=== PATIENT | female | born 1945 | race Hispanic/Latino ===

== ENCOUNTER → 2018-09-30 | Day surgery (SDC) | payer MEDICARE ==
[2018-09-15 12:31] LABS: BASOPHILS # (AUTO) 0.1 (0.0-0.1); BASOPHILS % 1.3 % (0.0-1.0); EOSINOPHILS # (AUTO) 0.1 (0.0-0.4); EOSINOPHILS % 1.6 % (0.0-6.0); HEMATOCRIT 35.6 % (34.2-44.1); HEMOGLOBIN 12.1 g/dL (12.0-16.0); LYMPHOCYTES # (AUTO) 1.5 (1.0-3.2); LYMPHOCYTES % 39.8 % (18.0-39.1); MEAN CORPUSCULAR HEMOGLOBIN 31.5 pg (28-32); MEAN CORPUSCULAR VOLUME 92.7 fL (81-99); MONOCYTES # (AUTO) 0.3 (0.2-0.8); MONOCYTES % 7.3 % (4.4-11.3); NEUTROPHILS # (AUTO) 1.8 (2.1-6.9); NEUTROPHILS % 49.5 % (38.7-80.0); PLATELET COUNT 203 x10e3/uL (140-360); RED BLOOD COUNT 3.84 x10e6/uL (3.6-5.1); RED CELL DISTRIBUTION WIDTH 13.3 % (11.7-14.4)
[2018-09-15 12:45] LABS: ANION GAP 13.4 mmol/L (8-16); CALCIUM 9.2 mg/dL (8.4-10.2); CREATININE, SERUM 1.01 mg/dL (0.57-1.11); POTASSIUM 4.4 mmol/L (3.5-5.1)
--- NOTE | 2018-09-15 12:51 | Diagnostic Imaging Report ---
EXAM: CHEST 2 VIEWS, PA and lateral DATE: 09/15/2018 Time stamp on exam: 12:22 PM INDICATION: Preoperative COMPARISON: None FINDINGS: LINES/TUBES: None LUNGS: No consolidations or edema. PLEURA: No effusions or pneumothorax. HEART AND MEDIASTINUM: Normal size and contour. Tortuous thoracic aorta. BONES AND SOFT TISSUES: No acute findings. Degenerative changes of the spine. IMPRESSION: No acute thoracic abnormality. Signed by: Dr. Prakash Calix DO on 09/15/2018 12:48 PM
[~2018-09-30] MED LIST: ASPIR 8181 MG PO; BETAMETHASONE DISODIUM PHOS 6 MG/ML VIAL ONE; BUPIVACAINE HCL 0.5% INJ 30 ML VIAL INJ ONE; CLINDAMYCIN PHOS 900MG/ 50ML 50 ML IV ONE; DEXAMETHASONE SOD PHOS INJ 4 MG/ML VIAL ONE; ELIQUIS PO; FENTANYL CITRATE/PF 100MCG/2 ML INJ ONE; FISH OIL OMEGA1 EACH PO; HYDROMORPHONE 2MG/ML 2 MG/ML ML ONE; KETOROLAC TROMETHAMINE 30 MG/ML VIAL ONE; LIDOCAINE HCL 1% LOCAL INJ 20 ML VIAL ONE; LIDOCAINE HCL 2% LOCAL INJ 5 ML SDV VIAL INJ ONE; LUBIPROSTONE PO; MIDAZOLAM HCL 2 MG/2 ML VIAL ONE; MUPIROCIN 2% OINT 22 GM TUBE ONE; OMEPRAZOLE40 MG PO; ONDANSETRON HCL INJ 2MG/ML 2ML 2 MG/ML VIAL ONE; PROPOFOL IV EMULSION 10 MG/ML 20 ML VIAL ONE; SEVOFLURANE INHAL SOLN 250 ML PEN BTL ONE; SYMBICORT 160-4.6 GM IH; VITAMIN B-121000 MCG PO; Z.0.ALBUTEROL SULF8. IH; Z.0.ENALAPRIL MALEA2 PO; Z.0.HYDROCHLOROTHIA2 PO; Z.0.PREVACID30 MG PO; Z.0.REGLAN10 MG PO; Z.0.SINGULAIR10 MG PO; Z.0.TRICOR145 MG PO; ZOLPIDEM TARTRAT5 MG PO
--- OUTSIDE RECORDS SUMMARY | 2018-09-30 05:53 | XMS REPORT | Summary of Care ---
Author Author [facility] [place] Organization [facility] [place] Address Unknown Phone Unavailable Encounter HQ Bhartir_ken(THIEN) [id number] Date(s): 04/17/17 - 04/17/17 [facility] [place] [address] [place] [phone] Discharge Disposition: Home or Self Care Attending Physician: Francesca Terry MD Vital Signs No data available for this section Problem List No data available for this section Allergies, Adverse Reactions, Alerts No data available for this section Medications No data available for this section Results No data available for this section Immunizations No data available for this section Procedures No data available for this section Social History No data available for this section Assessment and Plan No data available for this section
--- OUTSIDE RECORDS SUMMARY | 2018-09-30 05:53 | XMS REPORT | Continuity of Care Document ---
Author Author [facility] Interface Address Unknown Phone Unavailable Problems Problem Status Onset Date Classification Date Reported Comments Source Z12.31 - ENCNTR SCREEN MAMMOGRAM FOR MA Active 03/12/2016 MH LEEANNED [place] DWYER Active Problem 03/01/2017 Stephanie Nielsen Palpitations Active Problem 03/01/2017 Stephanie Nielsen Essential hypertension with goal blood pressure less than 140\/90 Active Problem 03/01/2017 Stephanie Nielsen History of DVT Active Problem 03/01/2017 Stephanie Nielsen Venous insufficiency Active Problem 03/01/2017 Stephanie Nielsen Asthma Active Problem 03/01/2017 Stephanie Nielsen History of pulmonary embolism Active Problem 03/01/2017 Stephanie Nielsen Nonrheumatic mitral insufficiency Active Problem 03/01/2017 Stephanie Nielsen Nonrheumatic tricuspid valve disorder Active Problem 03/01/2017 Stephanie Nielsen Aortic valve sclerosis Active Problem 03/01/2017 Stephanie Nielsen Medications Medication Details Route Status Patient Instructions Ordering Provider Order Date Source Enalapril Maleate not defined Orally Active 20 MG Orally Gia Nielsen Advair Diskus 1 puff Inhalation Active 250-50 MCG/DOSE Inhalation Twice a day Gia Nielsen Omeprazole 1 capsule Orally Active 40 MG Orally Once a day Gia Nielsen Gabapentin not defined Orally Active 100 MG Orally Gia Nielsen Aspirin 1 tablet Orally Active 81 MG Orally Once a day Gia Nielsen Zolpidem Tartrate 1 tablet at bedtime as needed Orally Active 10 MG Orally Once a day Gia Nielsen ProAir HFA 2 puffs as needed Inhalation Active 108 (90 Base) MCG/ACT Inhalation every 4 hrs Gia Nielsen Metoclopramide HCl not defined Orally Active 10 mg Orally twice a day (bid) Gia Nielsen Tramadol & Dietary Manage Prod not defined Orally Active 50 MG Orally Gia Nielsen Mirapex 1 tablet before bedtime Orally Active 0.25 MG Orally Once a day Gia Nielsen Fenofibrate 1 tablet Orally Active 145 MG Orally Once a day Gia Nielsen Montelukast Sodium 1 tablet in the evening Orally Active 10 MG Orally Once a day Gia Nielsen Allergies, Adverse Reactions, Alerts Substance Category Reaction Severity Reaction type Status Date Reported Comments Source Penicillin Adverse Reaction rashes Adverse Reaction Active 11/08/2015 Stephanie Nielsen Immunizations Immunization Date Given Site Status Last Updated Comments Source Results Order Name Results Value Reference Range Date Interpretation Comments Source Breast Mammo Scrn HUMZA incl CAD MA Breast Mammo Scrn HUMZA incl CAD MA BILATERAL DIGITAL SCREENING MAMMOGRAM WITH CAD: 04/18/2018 CLINICAL: Routine/Screeing. Current study was evaluated with a Computer Aided Detection (CAD) system. COMPARISON:Comparison is made to exams dated: 04/17/2017 mammogram, 04/17/2016 mammogram, 03/08/2015 mammogram, 03/06/2014 mammogram, 02/14/2013 mammogram, and 11/28/2011 mammogram - [facility]. TECHNIQUE: Mammographic views were obtained using digital acquisition. Current study was also evaluated with a Computer Aided Detection (CAD) system. FINDINGS: There are scattered fibroglandular densities in both breasts. There are benign vascular calcifications and intramammary nodes in both breasts. There also are benign scattered calcifications in both breasts. No significant masses, calcifications, or other findings are seen in either breast. There has been no significant interval change. IMPRESSION: BENIGN RECOMMENDATION:There is no mammographic evidence of malignancy. A 1 year screening mammogram is recommended.(04/19/2019) This exam was interpreted at [id number] for [place], SL 15. Professional services are provided by the [facility]. Mitul Coleman M.D., cm/remigio:04/18/2018 13:39:14 Form Presser(s): Dinorah Gotti RT(R)(M), [facility] letter sent: BI-RADS 1/2 Mammogram BI-RADS: 2 Benign 04/18/2018 - - Read by: Felton Michelle MD Dictated Date/time: 04/18/18 13:39 Electronically Signed by: Felton Michelle MD 04/18/18 13:39 FINAL REPORT JERRICA Krishna Breast Mammo Scrn HUMZA incl CAD MA Breast Mammo Scrn HUMZA incl CAD MA BILATERAL DIGITAL SCREENING MAMMOGRAM WITH CAD: 04/17/2017 CLINICAL: Routine/Screening. Current study was evaluated with a Computer Aided Detection (CAD) system. Comparison is made to exams dated: 04/17/2016 mammogram, 03/08/2015 mammogram, 03/06/2014 mammogram, and 02/14/2013 mammogram - [facility]. There are scattered fibroglandular densities in both breasts. There are benign vascular calcifications and intramammary nodes in both breasts. There also are benign scattered calcifications in both breasts. No significant masses, calcifications, or other findings are seen in either breast. There has been no significant interval change. IMPRESSION: BENIGN There is no mammographic evidence of malignancy. A 1 year screening mammogram is recommended.(04/18/2018) This exam was interpreted at [id number] [place]. Professional services are provided by the [facility]. Mitul Coleman M.D. cm/penrad:04/17/2017 08:49:36 Form Presser(s): RT Fly(R)(M), [facility] This exam was dictated and interpreted by [id number] for JERRICA Krishna. letter sent: BI-RADS 1/2 Mammogram BI-RADS: 2 Benign 04/17/2017 - - Read by: Felton Michelle MD Dictated Date/time: 04/17/17 08:49 Electronically Signed by: Felton Michelle MD 04/17/17 08:49 FINAL REPORT JERRICA Krishna Digital Mammo Screening [facility] MA Digital Mammo Screening [facility] MA - DIGITAL MAMMO SCREENING HUMZA MA BILATERAL DIGITAL SCREENING MAMMOGRAM WITH CAD: 04/17/2016 CLINICAL: Routine. Current study was evaluated with a Computer Aided Detection (CAD) system. Comparison is made to exams dated: 03/08/2015 mammogram, 03/06/2014 mammogram, 02/14/2013 mammogram, 11/28/2011 mammogram, 10/03/2010 mammogram and 03/18/2009 mammogram - [facility]. There are scattered fibroglandular densities in both breasts. There are benign vascular calcifications in both breasts. There also are benign intramammary nodes in both breasts. Additionally there are benign scattered calcifications in both breasts. No significant masses, calcifications, or other findings are seen in either breast. There has been no significant interval change. IMPRESSION: BENIGN There is no mammographic evidence of malignancy. A 1 year screening mammogram is recommended. Professional services are provided by the [facility]. Mitul Coleman M.D. cm/penrad:04/18/2016 08:56:09 Form Presser: Dinorah MACIEL)(Toby), [facility] This exam was dictated and interpreted by [id number] for [place]. letter sent: Normal exam Mammogram BI-RADS: 2 Benign 04/17/2016 - - Read by: Felton Coleman III, MD Dictated Date/time: 04/18/16 08:56 Electronically Signed by: Felton Coleman III, MD 04/18/16 08:56 FINAL REPORT LEEANNESumaya [place] Digital Mammo Screening [facility] MA Digital Mammo Screening [facility] MA - DIGITAL MAMMO SCREENING HUMZA MA BILATERAL DIGITAL SCREENING MAMMOGRAM WITH CAD: 03/08/2015 CLINICAL: Routine. Current study was evaluated with a Computer Aided Detection (CAD) system. Comparison is made to exams dated: 11/28/2011 mammogram, 02/14/2013 mammogram and 03/06/2014 mammogram - [facility]. There are scattered fibroglandular densities in both breasts. There are benign vascular calcifications and calcifications in both breasts. There also is a benign intramammary node in the right breast. Additionally there are benign intramammary nodes in the left breast. No significant masses, calcifications, or other findings are seen in either breast. There has been no significant interval change. IMPRESSION: BENIGN There is no mammographic evidence of malignancy. A 1 year screening mammogram is recommended. Gregorio Mueller M.D. srp/penrad:03/08/2015 13:07:28 Form Presser: Anusha GODDARD (R)(Toby), [facility] This exam was dictated and interpreted by [id number] for Deedee Alonso. letter sent: Normal exam Mammogram BI-RADS: 2 Benign 03/08/2015 - - Read by: Gregorio Mueller MD Dictated Date/time: 03/08/15 13:07 Electronically Signed by: Gregorio Mueller MD 03/08/15 13:07 FINAL REPORT LEEANNESumaya [place] Digital Mammo Screening [facility] MA Digital Mammo Screening [facility] MA - DIGITAL MAMMO SCREENING HUMZA MA BILATERAL DIGITAL SCREENING MAMMOGRAM WITH CAD: 03/06/2014 CLINICAL: Screening. Current study was evaluated with a Computer Aided Detection (CAD) system. Comparison is made to exams dated: 06/09/2008 mammogram, 03/18/2009 mammogram, 10/03/2010 mammogram, 11/28/2011 mammogram and 02/14/2013 mammogram - [facility]. There are scattered fibroglandular densities in both breasts. No significant masses, calcifications, or other findings are seen in either breast. There has been no significant interval change. IMPRESSION: NEGATIVE There is no mammographic evidence of malignancy. A screening mammogram in one year is recommended. Dr. Nereida Roberts D.O. ht/penrad:03/08/2014 08:42:28 Form Presser: Nusrat MACIEL)(Toby), [facility] This exam was dictated and interpreted by [id number] for JERRICA Krishna. letter sent: Normal exam Mammogram BI-RADS: 1 Negative 03/06/2014 - - Read by: Nereida Roberts DO Dictated Date/time: 03/08/14 08:42 Electronically Signed by: Nereida Roberts DO 03/08/14 08:42 FINAL REPORT GLADIS Krishna Chest w contrast CT Chest w contrast CT Exam: CT Scan of the Chest with contrast Reason for exam: Cough. Shortness of breath. Comparison exam: none Technique: Multiple axial images were obtained of the chest. 1.25 and 5 mm slices were acquired after injection of 75 cc Visipaque IV as per PE protocol. In addition, reformatted sagittal and coronal images were obtained for additional diagnostic information. Total exam ZES=946 mGy-cm. Discussion: 1.2 cm heterogeneous hypodense nodule seen within the right lobe of the thyroid gland. No mediastinal, hilar, or axillary lymphadenopathy. The heart size is within normal limits. No pericardial or pleural effusions. The central airways are patent. No interstitial thickening or bronchiectasis. No focal lung consolidations. There are no filling defects seen within the pulmonary arterial system out through the segmental level to suggest the presence of pulmonary emboli. No evidence seen for thoracic aortic aneurysm or dissection. The adrenal glands are within normal limits. No acute bony abnormalities. No suspicious osteoblastic or osteolytic lesions. Impression: 1. There are no filling defects seen within the pulmonary arterial system out through the segmental level to suggest the presence of pulmonary emboli. 05/18/2013 - - Read by: Kenroy Rajan Dictated Date/time: 05/18/13 15:34 Electronically Signed by: Kenroy Rajan MD 05/18/13 15:57 FINAL REPORT [facility] Digital Mammo Screening [facility] MA Digital Mammo Screening [facility] MA - DIGITAL MAMMO SCREENING HUMZA MA BILATERAL DIGITAL SCREENING MAMMOGRAM WITH CAD: 02/14/2013 CLINICAL: Screening. Current study was evaluated with a Computer Aided Detection (CAD) system. Comparison is made to exams dated: 03/18/2009 mammogram, 10/03/2010 mammogram and 11/28/2011 mammogram - [facility]. There are scattered fibroglandular elements in both breasts that could obscure a lesion on mammography. There are benign vascular calcifications in both breasts. There also are benign lymph nodes in both breasts. Additionally there are benign scattered calcifications in both breasts. No significant masses, calcifications, or other findings are seen in either breast. There has been no significant interval change. IMPRESSION: BENIGN There is no mammographic evidence of malignancy. A screening mammogram in one year is recommended. Dr. Nereida miguel/penrad:02/17/2013 08:55:05 Form Presser: Jennifer Gray RT, [facility] letter sent: Normal exam Mammogram BI-RADS: 2 Benign 02/14/2013 - - Read by: Nereida Roberts Dictated Date/time: 02/17/13 08:55 Electronically Signed by: Nereida Roberts , 02/17/13 08:55 FINAL REPORT GLADIS Krishna Renal US Renal US RENAL ULTRASOUND COMPLETE HISTORY: 67-year-old female with hypertension and chronic renal insufficiency. TECHNIQUE: Longitudinal and transverse lucas-scale images of the kidneys, retroperitoneal space and bladder were obtained using real-time ultrasound and supplemented with color Doppler. COMPARISON: None. FINDINGS: The kidneys have normal morphology and mild lobulated contour. Right kidney dimensions are 10.6 x 3.9 x 5.3 cm with cortical thickness of 1.2 cm. The arterial resistive index is 0.70. Left kidney dimensions are 10 x 4.8 x 4.8 cm with cortical thickness of 1.3 cm. The arterial resistive index is 0.69. The urinary bladder is moderately distended with hypoechoic lumen, both ureteric flow jets seen. The abdominal aorta has normal caliber and scattered plaque. The IVC has phasic flow. IMPRESSION: Normal renal ultrasound exam. 11/19/2012 - - Read by: Tato Olivarez Dictated Date/time: 11/19/12 15:36 Electronically Signed by: Tato Olivarez MD 11/19/12 15:38 FINAL REPORT GLADIS Krishna Vital Signs Vital Sign Value Date Comments Source Weight 140 11/08/2015 Mohamed O Jeroudi Height 63 11/08/2015 Mohamed O Jeroudi Temperature Oral (F) 96.5 F 11/08/2015 Mohamed O Jeroudi Heart Rate 90 11/08/2015 Mohamed O Jeroudi Diastolic (mm Hg) 80 11/08/2015 Mohamed O Jeroudi Systolic (mm Hg) 138 11/08/2015 Mohamed O Jeroudi Weight 135 10/25/2015 Mohamed O Jeroudi Height 63 10/25/2015 Mohamed O Jeroudi Temperature Oral (F) 97.2 F 10/25/2015 Mohamed O Jeroudi Heart Rate 91 10/25/2015 Mohamed O Jeroudi Diastolic (mm Hg) 80 10/25/2015 Mohamed O Jeroudi Systolic (mm Hg) 122 10/25/2015 Mohamed O Jeroudi Encounters Location Location Details Encounter Type Encounter Number Reason For Visit Attending Provider ADM Date DC Date Status Source [facility] [place] [facility] [id number] Kristin Cannon 03/06/2014 03/07/2014 [facility] [place] [facility] [place] Out[facility] [id number] Francesca Terry 03/08/2015 03/09/2015 MH [facility] [place] [facility] [place] Out[facility] Di[facility] Services [id number] Francesca Terry 04/17/2016 04/18/2016 [facility] [place] [facility] [place] Outpt Di[facility] Services [id number] Francesca MonteroLoretta 04/17/2017 04/18/2017 [facility] [place] Procedures Procedure Code Date Perfomer Comments Source
--- OUTSIDE RECORDS SUMMARY | 2018-09-30 05:53 | XMS REPORT | Summary of Care ---
Author Author [facility] [place] Organization [facility] [place] Address Unknown Phone Unavailable Encounter HQ Canntr_ken(THIEN) [id number] Date(s): 03/08/15 - 03/08/15 [facility] [place] [address] [place], [place] [address] [phone] Discharge Disposition: Home Attending Physician: Francesca Terry MD Vital Signs [...]
--- OUTSIDE RECORDS SUMMARY | 2018-09-30 05:53 | XMS REPORT | Summary of Care ---
Author Organization Unknown Address Unknown Phone Unavailable Encounter HQ Bhartir_ken(THIEN) [id number] Date(s): 03/06/14 - 03/06/14 [facility] Outpatient Imaging - [address] [address] [place] Discharge Disposition: Home Physician Attending: Kristin Cannon MD Reason for Visit V76.11 - SCREEN MAMMOGRA Problem List No data available for this section Allergies, Adverse Reactions, Alerts No data available for this section Medications No data available for this section Medications Administered During Your Visit No data available for this section Immunizations No data available for this section
--- OUTSIDE RECORDS SUMMARY | 2018-09-30 05:53 | XMS REPORT ---
Author Author Thomas Nielsen Organization [employer] Address Unknown Phone Unavailable Care Team Providers Care President And Chief Commercial Officer Name Role Phone Thomas Nielsen Unavailable Allergies, Adverse Reactions, Alerts Substance Reaction Event Type Penicillin rashes Drug Allergy Problems Problem Type Condition Code Onset Dates Condition Status Assessment DWYER (dyspnea on exertion) R06.09 Active Assessment Palpitations R00.2 Active Assessment Essential hypertension with goal blood pressure less than 140\/90 I10 Active Problem Essential hypertension with goal blood pressure less than 140\/90 I10 Active Problem DWYER (dyspnea on exertion) R06.09 Active Problem Palpitations R00.2 Active Problem History of DVT (deep vein thrombosis) Z86.718 Active Problem Venous insufficiency I87.2 Active Problem Asthma J45.909 Active Problem History of pulmonary embolism Z86.711 Active Assessment History of DVT (deep vein thrombosis) Z86.718 Active Assessment History of pulmonary embolism Z86.711 Active Assessment Venous insufficiency I87.2 Active Assessment Asthma J45.909 Active Medications Medication Code System Code Instructions Start Date End Date Status Dosage Enalapril Maleate [facility] [address]-89 20 MG Orally Active not defined Advair Diskus [facility] [address]-52 250-50 MCG/DOSE Inhalation Twice a day Active 1 puff Omeprazole [facility] [address]-99 40 MG Orally Once a day Active 1 capsule Gabapentin [facility] [address]-35 100 MG Orally Active not defined Aspirin [facility] [address]-06 81 MG Orally Once a day Active 1 tablet Zolpidem Tartrate [facility] [address]-37 10 MG Orally Once a day Active 1 tablet at bedtime as needed ProAir HFA [facility] [address]-71 108 (90 Base) MCG/ACT Inhalation every 4 hrs Active 2 puffs as needed Metoclopramide HCl [facility] [address]-92 10 mg Orally twice a day (bid) Active not defined Tramadol & Dietary Manage Prod NDC 0 50 MG Orally Active not defined Mirapex [facility] [address]-06 0.25 MG Orally Once a day Active 1 tablet before bedtime Fenofibrate [facility] [address]-91 145 MG Orally Once a day Active 1 tablet Montelukast Sodium [facility] [address]-16 10 MG Orally Once a day Active 1 tablet in the evening Vital Signs Date/Time: October 25, 2015 BMI 23.91 Index Weight 135 lbs Height 63 in Temperature 97.2 F Cardiac Monitoring Heart Rate 91 /min Blood Pressure Diastolic 80 mm Hg Blood Pressure Systolic 122 mm Hg Results No Known Results Summary Purpose [employer] Submission
--- OUTSIDE RECORDS SUMMARY | 2018-09-30 05:53 | XMS REPORT ---
Author Author [facility] Address Unknown Phone Unavailable Care Team Providers Care Senior Energy Consultant Name Role Phone EAMON CHRISTIAN Unavailable Unavailable Problems This patient has no known problems. Allergies, Adverse Reactions, Alerts This patient has no known allergies or adverse reactions. Medications This patient has no known medications. Results Test Description Test Time Test Comments Text Results Atomic Results Result Comments CHEST 2 VIEWS 2018-09-15 12:47:00 [place] [address] Patient Name: ERMELINDA LEE MR #: [id number] : 1945 Age/Sex: 73/F Req #: [id number] Adm Physician: Ordered by: EAMON CHRISTIAN DPM Report #: [id number] Location: OR Room/Bed: Procedure: [id number] DX/CHEST 2 VIEWS Exam Date: 09/15/18 Exam Time: 1220 REPORT STATUS: Signed EXAM: CHEST 2 VIEWS, PA and lateral DATE: 09/15/[address] amp on exam: 12:22 PM INDICATION: Preoperative COMPARISON: None FINDINGS: LINES/TUBES: None LUNGS: No consolidations or edema. PLEURA: No effusions or pneumothorax. HEART AND MEDIASTINUM: Normal size and contour. Tortuous thoracic aorta. BONES AND SOFT TISSUES: No acute findings. Degenerative changes of the spine. IMPRESSION: No acute thoracic abnormality. Signed by: Dr. Gorge Calix DO on 09/15/2018 12:48 PM Dictated By: GORGE CALIX DO 1248 Transcribed By: JANEL on 09/15/18 1248 COPY TO: EAMON CHRISTIAN DPM
--- OUTSIDE RECORDS SUMMARY | 2018-09-30 05:53 | XMS REPORT ---
Author Author Thomsa Nielsen Organization [employer] Address Unknown Phone Unavailable Care Team Providers Care Curriculum Development Manager Name Role Phone Thomas Nielsen Unavailable Allergies, Adverse Reactions, Alerts Substance Reaction Event Type Penicillin rashes Drug Allergy Problems Problem Type Condition Code Onset Dates Condition Status Problem Venous insufficiency I87.2 Active Problem History of pulmonary embolism Z86.711 Active Problem History of DVT (deep vein thrombosis) Z86.718 Active Problem Nonrheumatic mitral (valve) insufficiency I34.0 Active Problem Nonrheumatic tricuspid valve disorder I36.9 Active Problem Aortic valve sclerosis I35.8 Active Problem DWYER (dyspnea on exertion) R06.09 Active Problem Asthma J45.909 Active Problem Palpitations R00.2 Active Problem Essential hypertension with goal blood pressure less than 140\/90 I10 Active Assessment History of DVT (deep vein thrombosis) Z86.718 Active Assessment Asthma J45.909 Active Assessment DWYER (dyspnea on exertion) R06.09 Active Assessment History of pulmonary embolism Z86.711 Active Assessment Essential hypertension with goal blood pressure less than 140\/90 I10 Active Assessment Venous insufficiency I87.2 Active Assessment Palpitations R00.2 Active Medications Medication Code System Code Instructions Start Date End Date Status Dosage Fenofibrate [facility] [address]-61 145 MG Orally Once a day Active 1 tablet Enalapril Maleate [facility] [address]-20 20 MG Orally Active not defined Omeprazole [facility] [address]-02 40 MG Orally Once a day Active 1 capsule Metoclopramide HCl [facility] [address]-56 10 mg Orally twice a day (bid) Active not defined Aspirin [facility] [address]-83 81 MG Orally Once a day Active 1 tablet Zolpidem Tartrate [facility] [address]-88 10 MG Orally Once a day Active 1 tablet at bedtime as needed Advair Diskus [facility] [address]-87 250-50 MCG/DOSE Inhalation Twice a day Active [address] [facility] [address]-53 100 MG Orally Active not defined Mirapex [facility] [address]-30 0.25 MG Orally Once a day Active 1 tablet before bedtime ProAir HFA [facility] [address]-53 108 (90 Base) MCG/ACT Inhalation every 4 hrs Active 2 puffs as needed Tramadol & Dietary Manage Prod NDC 0 50 MG Orally Active not defined Montelukast Sodium [facility] [address]-59 10 MG Orally Once a day Active 1 tablet in the evening Vital Signs Date/Time: November 08, 2015 BMI 24.80 Index Weight 140 lbs Height 63 in Temperature 96.5 F Cardiac Monitoring Heart Rate 90 /min Blood Pressure Diastolic 80 mm Hg Blood Pressure Systolic 138 mm Hg Results No Known Results Summary Purpose [employer] Submission
--- OUTSIDE RECORDS SUMMARY | 2018-09-30 05:53 | XMS REPORT | Summary of Care ---
Author Author [facility] [place] Organization [facility] [place] Address Unknown Phone Unavailable Encounter HQ Canntr_ken(THIEN) [id number] Date(s): 04/17/16 - 04/17/16 [facility] - [place] [address] [place] [address] 7 [phone] Discharge Disposition: Home or Self Care Attending [...]
--- NOTE | 2018-09-30 07:10 | NUR ---
SPIRITUAL CARE - Pre-Surgery Assessment: Pt in bed. Pt's daughter at bedside. Pt reported supportive attention from family and friends. Intervention: I provided pastoral presence, hospitality, and sympathetic listening. I acquainted pt with availability of integration lead while hospitalized. Outcome: Pt expressed appreciation for visit. No need for follow up indicated at this time. MIRANDA Skylain Spiritual Care Department O: [phone] Pager: [phone] ([phone] number calling from)
--- NOTE | 2018-09-30 09:56 | Diagnostic Imaging Report ---
Exam: Left foot 2 views History: Postoperative Comparison: None. Findings: See impression Impression: Postsurgical views of the left foot show a surgical screw and pin traversing the distal shaft of the first metatarsal related to osteotomy/bunionectomy. Surgical pins traverse the phalanges of the third and fourth rays. Please refer to operative report for full details. Signed by: Dr. Mio Paredes M.D. on 09/30/2018 9:53 AM
[2018-09-30 10:40] VITALS: BP 125/69
--- NOTE | 2018-09-30 12:17 | Operative Report ---
DATE OF PROCEDURE: 09/30/2018 SURGEON: Ralph Boykin DPM PREOPERATIVE DIAGNOSES: 1. Painful hallux valgus deformity, left foot. 2. Painful contracted hammertoe, third digit, left foot. 3. Painful contracted hammertoe, fourth digit, left foot. 4. Painful contracted hammertoe, fifth digit, left foot. 5. Painful tailor's bunion, left foot. POSTOPERATIVE DIAGNOSES: 1. Painful hallux valgus deformity, left foot. 2. Painful contracted hammertoe, third digit, left foot. 3. Painful contracted hammertoe, fourth digit, left foot. 4. Painful contracted hammertoe, fifth digit, left foot. 5. Painful tailor's bunion, left foot. OPERATIVE PROCEDURES: 1. Jones bunionectomy with screw fixation, left foot. 2. Arthroplasty of third digit with K-wire fixation, left foot. 3. Arthroplasty of fourth digit with K-wire fixation, left foot. 4. Arthroplasty of fifth digit, left foot. 5. Tailor's bunionectomy, left foot. 6. Intraoperative use of fluoroscopy. 7. Trigger point shot of cortisone. 8. Application of posterior splint. ANESTHESIA: General. HEMOSTASIS: Pneumatic thigh tourniquet at 350 mmHg. DESCRIPTION OF PROCEDURE: The patient was taken into the operative room, placed on the operative table in a supine position. Following induction of general anesthesia by the anesthesiologist, Webril wraps were placed on the patient's left thigh followed by application of left thigh tourniquet. The left lower extremity was then prepped and draped in the usual aseptic manner. The following procedures were then performed. PROCEDURE #1: Jones bunionectomy with screw fixation of left foot. Attention was directed to the dorsomedial aspect of the first MPJ where a 6 cm linear incision was performed. Incision was deepened down to the joint capsule. Longitudinal capsulotomy was performed exposing the dorsomedial exostosis of the first metatarsal head. Using an oscillating saw, dorsomedial exostosis was excised from the operation site in toto. A V osteotomy was then performed from medial to lateral. Capital fragment was then transpositioned laterally upon adequate surgical and anatomical reduction utilizing proper AO technique. A 2.0, 14 mm cortical screw in conjunction with a bur. A 0.045 K-wire was used to achieve stability of osteotomy site. Redundant bone medially was excised via the use of an oscillating saw and rotating bur. PROCEDURES #2, 3, AND 4: Arthroplasties of 3rd, 4th, and 5th with K-wire fixation of 3rd and 4th digits, left foot. Attention was then directed to the dorsal aspect of the proximal interphalangeal joint of the above-mentioned toes where a 3 cm linear incision was performed. Incision was deepened down to the joint capsule. Transverse capsulotomy was then performed exposing the head of the proximal phalanx. Using an oscillating saw, head of the proximal phalanx was excised from the operation site in toto. All rough and bony edges were rasped smooth. Third and fourth toes were still noted to be contracted, so a 0.035 K-wire was introduced up to metatarsophalangeal joint to achieve proper anatomical reduction. PROCEDURE #5: Tailor's bunionectomy of left foot. Attention was then directed to the lateral aspect of the fifth metatarsophalangeal joint where a 3 to 5 cm linear incision was performed. Incision was deepened down to the joint capsule. Longitudinal capsulotomy was then performed exposing the dorsal lateral exostosis of the fifth metatarsal head. Using oscillating saw, dorsal lateral exostosis was excised from the operation site in toto. All rough and bony edges were rasped smooth. PROCEDURE #6: Intraoperative use of fluoroscopy was then used to make sure proper alignment fixation was achieved. Closure was then obtained utilizing 3-0 Vicryl, 4-0 Vicryl, and 4-0 nylon for capsule, subcutaneous tissue, and skin after properly irrigating the areas with saline. PROCEDURE #7: Trigger point shot of cortisone was then given to the first and fourth interspace of the left foot. Then, approximately 15 mL of 0.5% plain Marcaine plus 10 mL of 1% Xylocaine plain were used to achieve local anesthesia of above-mentioned surgical area. Sterile dressing was applied. Upon release of thigh tourniquet, blood hyperemia was noted immediate to all digits of the patient's left foot. PROCEDURE #8: Application of posterior splint. A properly placed posterior splint was then applied keeping the foot in 90 degrees with respect to the leg to try and prevent any postop complications. The patient was then transferred from the OR to recovery room with vital signs stable, neurovascular status intact. No intraoperative complications were encountered. Blood loss from the surgery was minimal. The patient to remain nonweightbearing with the aid of crutches, keep her foot elevated and is to apply an ice pack to the ankle joint areas. NILO Min/JUAN PABLO /[id number]
== END | disposition home or self-care (01) ==
LOC: OR 05:50
PROVIDERS: ATTEND Podiatrist Foot Surgery
DX: M20.12 Hallux valgus (acquired), left foot (principal); M20.42 Other hammer toe(s) (acquired), left foot; M21.622 Bunionette of left foot; G47.33 Obstructive sleep apnea (adult) (pediatric); I10 Essential (primary) hypertension; I20.9 Angina pectoris, unspecified; J45.909 Unspecified asthma, uncomplicated; Z88.0 Allergy status to penicillin; Z01.810 Encounter for preprocedural cardiovascular examination; Z01.812 Encounter for preprocedural laboratory examination; Z01.818 Encounter for other preprocedural examination; Z79.82 Long term (current) use of aspirin; Z79.02 Long term (current) use of antithrombotics/antiplatelets
CPT/HCPCS: 28110; 28285 ×3; 28296; 36415; 71046; 73620; 80048; 85025; 93005; C1713; J0720; J1100; J1170; J1885; J2001 ×2; J2250; J2405; J2704

== ENCOUNTER → 2019-11-09 | Emergency (ER) | payer BC, MEDICARE ==
[~2019-11-09] VITALS: Ht 157.5 cm; Wt 61.2 kg
[~2019-11-09] MED LIST changes: -BETAMETHASONE DISODIUM PHOS 6 MG/ML VIAL ONE; -BUPIVACAINE HCL 0.5% INJ 30 ML VIAL INJ ONE; -CLINDAMYCIN PHOS 900MG/ 50ML 50 ML IV ONE; -DEXAMETHASONE SOD PHOS INJ 4 MG/ML VIAL ONE; -FENTANYL CITRATE/PF 100MCG/2 ML INJ ONE; -HYDROMORPHONE 2MG/ML 2 MG/ML ML ONE; +KETAMINE HCL INJ 50 MG/ML 10 ML VIAL IV ONE; -KETOROLAC TROMETHAMINE 30 MG/ML VIAL ONE; -LIDOCAINE HCL 1% LOCAL INJ 20 ML VIAL ONE; -LIDOCAINE HCL 2% LOCAL INJ 5 ML SDV VIAL INJ ONE; -MIDAZOLAM HCL 2 MG/2 ML VIAL ONE; +MORPHINE SULFATE INJ 4 MG/ML INJ 1ML IV STA; -MUPIROCIN 2% OINT 22 GM TUBE ONE; +ONDANSETRON HCL INJ 2MG/ML 2ML 2 MG/ML VIAL IV STA; -ONDANSETRON HCL INJ 2MG/ML 2ML 2 MG/ML VIAL ONE; +PROPOFOL IV EMULSION 10 MG/ML 20 ML VIAL IV ONE; -PROPOFOL IV EMULSION 10 MG/ML 20 ML VIAL ONE; -SEVOFLURANE INHAL SOLN 250 ML PEN BTL ONE
--- OUTSIDE RECORDS SUMMARY | 2019-11-09 19:26 | XMS REPORT | Continuity of Care Document ---
Author Author [facility] Address Unknown Phone Unavailable Care Team Providers Care Saw Feeder Name Role Phone [employer] Unavailable Un available Problems Problem Status Onset Date Classification Date Reported Comments Source Z12.31 - ENCNTR SCREEN MAMMOGRAM FOR MA Active 03/12/2016 [facility] [place] Encounter for screening mammogram for ma lignant neoplasm of breast 04/22/2019 GLADIS [place] DWYER (dyspnea on exertion) Acti ve Problem 07/2016 Stephanie Nielsen Palpitations Active Problem 03/01/2017 Stephanie Nielsen Essential hypertension with goal blood p ressure less than 140\/90 Active Prob opal 03/01/2017 Stephanie Nielsen History of DVT (deep vein thrombosis) Active Problem 07/2016 Stephanie Nielsen Venous insufficiency Active Problem 03/01/2017 Stephanie Nielsen Asthma Active Problem 03/01/2017 Stephanie Nielsen History of pulmonary embolism Active Problem 07/2016 Stephanie Nielsen Nonrheumatic mitral (valve) insufficiency Active Problem 03/01/2017 Stephanie Nielsen Nonrheumatic tricuspid valve disorder Active Problem 07/2016 Stephanie Nielsen Aortic valve sclerosis Active Problem 03/01/2017 Stephanie Nielsen Medications Medication Details Route Status Patient Instructions Ordering Provider Order Date Source Enalapril Maleate not defined Orally Active 20 MG Orally Gia Nielsen Advair Diskus 1 puff Inhalation Active 250-50 MCG/DOSE Inhalat ion Twice a day Gia Nielsen Omeprazole 1 [...] Orally Active 145 MG Orally Once a da y Gia Nielsen Montelukast Sodium 1 tablet in the evening Orally Active 10 MG Orally Once a day Gia Nielsen Allergies, Adverse Reactions, Alerts Substance Category Reaction Severity Reaction type Status Date Reported Comments Source Penicillin Adverse Reaction rashes Adverse Reaction Active 11/08/2015 Stephanie Nielsen Immunizations No Data Provided for This Section Results No Data Provided for This Section Pathology Reports No Data Provided for This Section Diagnostic Reports Report Value Date Source Breast Mammo Scrn [facility] incl CAD MA BILATERAL DIGITAL SCREENING MAMMOGRAM WITH CAD: 04/20/2019 CLINICAL: Routine/Screening. Current study was evaluated with a Computer Aided Detection (CAD) system. COMPARISON:Comparison is made to exams dated: 04/18/2018 mammogram, 04/17/2017 mammogram, 04/17/2016 mammogram, 03/08/2015 mammogram, and 03/06/2014 mammogram - [facility]. TECHNIQUE: Mammographic views were obtained [...] malignancy. A 1 year screening mammogram is recommended.(04/20/2020) This exam was interpreted at [id number] for [place], 15. Professional services are provided by the [facility]. Mitul Coleman M.D., cm/remigio:04/20/2019 09:48:43 Bonding Supervisor(s): Dinorah Gotti RT(R)(M), [facility] letter sent: BI-RADS 1/2 Mammogram BI-RADS: 2 Benign 04/20/2019 JERRICA Krishna Breast Mammo Scrn [facility] incl CAD MA BILATERAL DIGITAL SCREENING MAMMOGRAM WITH CAD: 04/18/2018 CLINICAL: Routine/Screeing. Current study was evaluated with a Computer Aided Detection (CAD) system. COMPARISON:Comparison is made to exams dated: 04/17/2017 mammogram, 04/17/2016 mammogram, 03/08/2015 mammogram, 03/06/2014 mammogram, 02/14/2013 mammogram, and 11/28/2011 mammogram - [facility]. TECHNIQUE: Mammographic views were obtained [...] is recommended.(04/19/2019) This exam was interpreted at [id number] for JERRICA Krishna, SL 15. Professional services are provided by the [facility] Diagnostic Imaging. Mitul Coleman M.D. cm/penrad:04/18/2018 13:39:14 Bonding Supervisor(s): Dinorah Gotti RT(R)(M), [facility] letter sent: BI-RADS 1/2 Mammogram BI-RADS: 2 Benign 04/18/2018 JERRICA Krishna Breast Mammo Scrn [facility] incl CAD MA BILATERAL DIGITAL SCREENING MAMMOGRAM WITH CAD: 04/17/2017 CLINICAL: Routine/Screening. Current study was evaluated with a Computer Aided Detection (CAD) system. Comparison is made to exams dated: 04/17/2016 mammogram, 03/08/2015 mammogram, 03/06/2014 mammogram, and 02/14/2013 mammogram - [facility]. There are scattered fibroglandular densities [...] is recommended.(04/18/2018) This exam was interpreted at [id number] for Tomi. Professional services are provided by the [facility] Division of Diagnostic Imaging. Mitul Coleman M.D. /penrad:04/17/2017 08:49:36 Bonding Supervisor(s): Anusha Ray RT(R)(M), [facility] This exam was dictated and interpreted by [id number] for Tomi. letter sent: BI-RADS 1/2 Mammogram BI-RADS: 2 Benign 04/17/2017 [facility] [place] Digital Mammo Screening [facility] MA - DIGITAL MAMMO SCREENING [facility] MA BILATERAL DIGITAL SCREENING MAMMOGRAM WITH CAD: 04/17/2016 CLINICAL: Routine. Current study was evaluated with a Computer Aided Detection (CAD) system. Comparison is made to exams dated: 03/08/2015 mammogram, 03/06/2014 mammogram, 02/14/2013 mammogram, 11/28/2011 mammogram, 10/03/2010 mammogram and 03/18/2009 mammogram - [facility]. There are scattered fibroglandular densities [...] recommended. [facility]. Mitul Coleman M.D. cm/penrad:04/18/2016 08:56:09 Bonding Supervisor: Dinorah Gotti RT(R)(M), [facility] This exam was dictated and interpreted by [id number] for [place]. letter sent: Normal exam Mammogram BI-RADS: 2 Benign 04/17/2016 [facility] [place] Digital Mammo Screening [facility] MA - DIGITAL MAMMO SCREENING [facility] MA BILATERAL DIGITAL SCREENING MAMMOGRAM WITH CAD: 03/08/2015 CLINICAL: Routine. Current study was evaluated with a Computer Aided Detection (CAD) system. Comparison is made to exams dated: 11/28/2011 mammogram, 02/14/2013 mammogram and 03/06/2014 mammogram - [facility]. There are scattered fibroglandular densities [...] screening mammogram is recommended. Gregorio Mueller M.D. [facility]/penrad:03/08/2015 13:07:28 Bonding Supervisor: Anusha Ray RT(R)(M), [facility] This exam was dictated and interpreted by [id number] for Deeede Alonso. letter sent: Normal exam Mammogram BI-RADS: 2 Benign 03/08/2015 [facility] [place] Digital Mammo Screening [facility] MA - DIGITAL MAMMO SCREENING [facility] MA BILATERAL DIGITAL SCREENING MAMMOGRAM WITH CAD: 03/06/2014 CLINICAL: Screening. Current study was evaluated with a Computer Aided Detection (CAD) system. Comparison is made to exams dated: 06/09/2008 mammogram, 03/18/2009 mammogram, 10/03/2010 mammogram, 11/28/2011 mammogram and 02/14/2013 mammogram - [facility]. There are scattered fibroglandular densities in both breasts. No significant masses, calcifications, or other findings are seen in either breast. There has been no significant interval change. IMPRESSION: NEGATIVE There is no mammographic evidence of malignancy. A screening mammogram in one year is recommended. Dr. Nereida Roberts D.O. /penrad:03/08/2014 08:42:28 Bonding Supervisor: Nusrat Godoy RT(R)(M), [facility] This exam was dictated and interpreted by [id number] for JERRICA Krishna. letter sent: Normal exam Mammogram BI-RADS: 1 Negative 03/06/2014 JERRICA Krishna Chest w contrast CT Exam: CT Scan [...] obtained for additional diagnostic information. Total exam DLP = 454 mGy-cm. Discussion: 1.2 cm heterogeneous hypodense nodule se en within the right lobe of the thyroid [...] 1. There are no filling defects seen wi thin the pulmonary arterial system out through the segmental level to suggest the presence of pulmonary emboli. 05/18/2013 JERRICA Krishna Digital Mammo Screening [facility] MA - DIGITAL MAMMO SCREENING [facility] MA BILATERAL DIGITAL SCREENING MAMMOGRAM WITH CAD: 02/14/2013 CLINICAL: Screening. Current study was evaluated with a Computer Aided Detection (CAD) system. Comparison is made to exams dated: 03/18/2009 mammogram, 10/03/2010 mammogram and 11/28/2011 mammogram - [facility]. There are scattered fibroglandular elements [...] year is recommended. Dr. Nereida Roberts D.O. hht/penrad:02/17/2013 08:55:05 Bonding Supervisor: Jennifer Gray RT, [facility] letter sent: Normal exam Mammogram BI-RADS: 2 Benign 02/14/2013 GLADIS Krishna Renal US RENAL ULTRASOUND COMP LETE HISTORY: 67-year-old female with hypertension and chronic [...] flow. IMPRESSION: Normal renal ultrasound exam. 11/19/2012 GLADIS Krishna Consultation Notes No Data Provided for This Section Discharge Summaries No Data Provided for This Section History and Physicals No Data Provided for This Section Vital Signs Vital Sign Value Date Comments Source Weight 140 11/08/2015 Mohamed [place] Height 63 0 11/08/2015 [facility] [place] Temperature Oral (F) 96.5 F 11/08/2015 Mohamed [facility] [place] Heart Rate 90 11/08/2015 Mohamed [place] Diastolic (mm Hg) 80 11/08/2015 Moh[facility] [place] Systolic (mm Hg) 138 11/08/2015 [facility] [place] Weight 135 10/25/2015 Mohamed [place] Height 63 0 10/25/2015 Mohamed [place] Temperature Oral (F) 97.2 F 10/25/2015 Mohamed [facility] [place] Heart Rate 91 10/25/2015 Moh[facility] [place] Diastolic (mm Hg) 80 10/25/2015 Mohamed [place] Systolic (mm Hg) 122 10/25/2015 Mohamed [place] Encounters Location Location Details Encounter Type Encounter Number Reason For Visit Attending Provider ADM Date DC Date Status Source [facility] Outpatient [facility] - [place] Out Diag Services [id number] 05 Kristin Cannon 03/06/2014 03/07/2014 MH [facility] [place] [facility] [place] Out[facility] [id number] 06 [facility] 03/08/2015 03/09/2015 MH [facility] [place] [facility] [place] Outpt Diag Services [id number] 07 [facility] 04/17/2016 04/18/2016 MH [facility] [place] [facility] [place] Outpt Diag Services [id number] [facility] 04/17/2017 04/18/2017 MH [facility] [place] [facility] - [place] Outpt Diag Services [id number] [facility] 04/18/2018 04/19/2018 [facility] [place] [facility] - [place] Outpt Diag Services [id number] [address] [place] [address] 04/20/2019 04/21/2019 [facility] [place] Procedures No Data Provided for This Section Assessment and Plan No Data Provided for This Section Plan of Care No Data Provided for This Section Social History Social History Date Source No data available for this section 04/21/2019 MH [facility] [place] Family History No Data Provided for This Section Advance Directives No Data Provided for This Section Functional Status No Data Provided for This Section
--- OUTSIDE RECORDS SUMMARY | 2019-11-09 19:26 | XMS REPORT | Summary of Care ---
Author Author [facility] - [facility] Organization [facility] - [facility] Address Unknown Phone Unavailable Encounter HQ Encntr_ken(FIN) [id number] Date(s): 04/20/19 - 04/20/19 [facility] - [place] [address], [place] [address] [phone] Encounter Diagnosis Encounter for screening mammogram for malignant neoplasm of breast (Final) - Discharge Disposition: Home or Self Care Attending Physician: Francesca Terry MD Referring Physician: Francesca Terry MD Vital Signs No [...]
--- OUTSIDE RECORDS SUMMARY | 2019-11-09 19:27 | XMS REPORT | Summary of Care ---
Author Author [facility] Outpatient Imaging - [facility] Organization [facility] Outpatient Imaging - [facility] Address Unknown Phone Unavailable Encounter HQ Encntr_alias(FIN) [id number] Date(s): 04/18/18 - 04/18/18 [facility] Outpatient Imaging - [place] [address] [place] [address] 7 [phone] Encounter Diagnosis Encounter for screening mammogram for malignant neoplasm of breast (Final) - 04/19/18 Discharge Disposition: Home or Self Care Attending Physician: Francesca Terry MD Referring Physician: Physician, Non Associated MD Vital Signs No data available for [...]
[2019-11-09 20:17] LABS: BASOPHILS # (AUTO) 0.1 (0.0-0.1); BASOPHILS % 0.6 % (0.0-1.0); EOSINOPHILS # (AUTO) 0.1 (0.0-0.4); EOSINOPHILS % 0.6 % (0.0-6.0); HEMATOCRIT 37.8 % (34.2-44.1); HEMOGLOBIN 12.8 g/dL (12.0-16.0); LYMPHOCYTES # (AUTO) 1.4 (1.0-3.2); LYMPHOCYTES % 17.6 % (18.0-39.1); MEAN CORPUSCULAR HEMOGLOBIN 30.9 pg (28-32); MEAN CORPUSCULAR HGB CONC 33.9 g/dL (31-35); MEAN CORPUSCULAR VOLUME 91.3 fL (81-99); MONOCYTES # (AUTO) 0.4 (0.2-0.8); MONOCYTES % 4.6 % (4.4-11.3); NEUTROPHILS % 76.3 % (38.7-80.0); PLATELET COUNT 167 x10e3/uL (140-360); RED BLOOD COUNT 4.14 x10e6/uL (3.6-5.1); RED CELL DISTRIBUTION WIDTH 13.4 % (11.7-14.4)
--- NOTE | 2019-11-09 20:54 | Diagnostic Imaging Report ---
CT BRAIN WO HISTORY: Fall COMPARISON: None. TECHNIQUE: Noncontrast axial scans were obtained from skull base to the vertex. Coronal and sagittal reconstructions obtained from the axial data. One or more of the following dose reduction techniques were used: Automated exposure control, adjustment of the mA and/or kV according to patient size, and/or utilization of iterative reconstruction technique. DISCUSSION: Scalp/Skull: Right frontal scalp hematoma without calvarial fracture. Brain sulci: Appropriate for patient's age. Ventricles: Normal in size and configuration. No hydrocephalus. Extra-axial spaces: No masses or fluid collections. Carotid siphon and vertebral artery calcifications are present. Parenchyma: Mild periventricular white matter hypodensities are likely chronic microvascular ischemic changes. Otherwise, no mass, hemorrhage, or large vascular territory acute infarct. Dural sinuses: No abnormal densities. Sellar/Suprasellar region: Intact. Skull base: Intact. Incidental findings: Layering fluid in the left sphenoid sinus is nonspecific. IMPRESSION: 1. No acute intracranial abnormalities. 2. Mild supratentorial chronic microvascular ischemic change. Signed by: Dr. William Lucero M.D. on 11/09/2019 8:50 PM
--- NOTE | 2019-11-09 21:20 | Diagnostic Imaging Report ---
Bilateral knees- 3 view(s) each HISTORY: Pain. COMPARISON: None available. FINDINGS: RIGHT: No displaced fracture. The osseous alignment is within normal limits. Moderate tricompartmental joint space narrowing and marginal osteophytosis, worst in the medial compartment. Possible small joint effusion. LEFT: No displaced fracture. The osseous alignment is within normal limits. Moderate tricompartmental joint space narrowing and marginal osteophytosis, worst in the medial compartment. The soft tissues appear unremarkable. IMPRESSION: No acute fracture. 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 Signed by: Brayan Abreu MD on 11/09/2019 9:16 PM
--- NOTE | 2019-11-09 21:21 | Diagnostic Imaging Report ---
ADDENDUM #1 There is inferior dislocation of the right humeral head. No fracture is identified. Signed by: Brayan Abreu MD on 11/09/2019 10:03 PM ORIGINAL REPORT EXAMINATION: CHEST 2 VIEWS INDICATION: Chest pain COMPARISON: None FINDINGS: PA and lateral views TUBES and LINES: None. LUNGS: Ill-defined right lung base opacity. The lungs are otherwise clear. PLEURA: No pleural effusion or pneumothorax. HEART AND MEDIASTINUM: The cardiomediastinal silhouette is unremarkable. BONES AND SOFT TISSUES: No acute osseous lesion. Soft tissues are unremarkable. UPPER ABDOMEN: No free air under the diaphragm. IMPRESSION: Right lung base opacity likely represents atelectasis. The lungs are otherwise clear. Signed by: Brayan Abreu MD on 11/09/2019 9:18 PM
--- NOTE | 2019-11-09 21:26 | Emergency Department Note ---
History of Present Illnes History of Present Illness Chief Complaint: Head/Face Trauma Stated Complaint: FALL History of Present Illness This is a 74 year old female fell one flight of stairs. No LOC. Reports pain in the right shoulder/clavicular regoin . 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 Any updates have been documented here. Review of Systems Review of Systems Constitutional: no symptoms EENTM: no symptoms Cardiovascular: no symptoms Gastointestinal/Abdominal: no symptoms Genitourinary: no symptoms Musculoskeletal: no symptoms, muscle pain Integumentary: no symptoms Neurological: no symptoms, headache Psychological: no symptoms Endocrine: no symptoms Hematological/Lymphatic: no symptoms Review of other systems All other systems reviewed and negative. Physical Exam Related Data Allergies: Coded Allergies: Penicillins (Verified Allergy, Unknown, RASH, 09/15/18) Physical Exam CONSTITUTIONAL Constitutional: well-developed, well-nourished, other (in pain) HENT HENT: normocephalic, atraumatic, oropharynx clear/moist, nose normal HENT - Ear: left ext ear normal, right ext ear normal EYES Eyes: PERRL, conjunctivae normal NECK Neck: ROM normal PULMONARY Pulmonary: effort normal, breath sounds normal CARDIOVASCULAR Cardiovascular: regular rhythm, heart sounds normal, capillary refill normal, normal rate GASTROINTESTINAL Abdominal: soft, nontender, bowel sounds normal GENITOURINARY Genitourinary: exam deferred SKIN Skin: warm, dry, other (cephalahematoma R forehead) MUSCULOSKELETAL Musculoskeletal: tenderness (R shoulder) NEUROLOGICAL Neurological: alert, oriented x 3, no gross motor or sensory deficits PSYCHOLOGICAL Psychiatric/behavioral: mood/affect normal, judgement normal Results Laboratory Lab results reviewed: Yes Imaging Y: Yes Impressions [place] [address] Patient Name: ERMELINDA LEE MR #: [id number] : 1945 Age/Sex: 74/F Req #: [id number] Adm Physician: Ordered by: MAGEN BRAMBILA DO Report #: [id number] Location: ER Room/Bed: Procedure: [id number] CT/CT BRAIN WO Exam Date: Exam Time: REPORT STATUS: Signed CT BRAIN WO HISTORY: Fall COMPARISON: None. TECHNIQUE: Noncontrast axial scans were obtained from skull base to the vertex. Coronal and sagittal reconstructions obtained from the axial data. One or more of the following dose reduction techniques were used: Automated exposure control, adjustment of the mA and/or kV according to patient size, and/or utilization of iterative reconstruction technique. DISCUSSION: Scalp/Skull: Right frontal scalp hematoma without calvarial fracture. Brain sulci: Appropriate for patient's age. Ventricles: Normal in size and configuration. No hydrocephalus. Extra-axial spaces: No masses or fluid collections. Carotid siphon and vertebral artery calcifications are present. Parenchyma: Mild periventricular white matter hypodensities are likely chronic microvascular ischemic changes. Otherwise, no mass, hemorrhage, or large vascular territory acute infarct. Dural sinuses: No abnormal densities. Sellar/Suprasellar region: Intact. Skull base: Intact. Incidental findings: Layering fluid in the left sphenoid sinus is nonspecific. IMPRESSION: 1. No acute intracranial abnormalities. 2. Mild supratentorial chronic microvascular ischemic change. Signed by: Dr. William Lucero M.D. on 11/09/2019 8:50 PM Dictated By: WILLIAM LUCERO MD 49 Transcribed By: JANEL on 11/09/192049 COPY TO: MAGEN BRAMBILA DO~ [place] [address] Patient Name: ERMELINDA LEE MR #: [id number] : 1945 Age/Sex: 74/F Req #: [id number] Adm Physician: Ordered by: MAGEN BRAMBILA DO Report #: [id number] Location: ER Room/Bed: Procedure: [id number] DX/CHEST 2 VIEWS Exam Date: 11/09/19 Exam Time: 2009 REPORT STATUS: Signed ADDENDUM #1 There is inferior dislocation of the right humeral head. No fracture is identified. Signed by: Von Manzanares MD on 11/09/2019 10:03 PM ORIGINAL REPORT EXAMINATION: CHEST 2 VIEWS INDICATION: Chest pain COMPARISON: None FINDINGS: PA and lateral views TUBES and LINES: None. LUNGS: Ill-defined right lung base opacity. The lungs are otherwise clear. PLEURA: No pleural effusion or pneumothorax. HEART AND MEDIASTINUM: The cardiomediastinal silhouette is unremarkable. BONES AND SOFT TISSUES: No acute osseous lesion. Soft tissues are unremarkable. UPPER ABDOMEN: No free air under the diaphragm. IMPRESSION: Right lung base opacity likely represents atelectasis. The lungs are otherwise clear. Signed by: Von Manzanares MD on 11/09/2019 9:18 PM Dictated By: VON MANZANARES MD 02 Transcribed By: JANEL on 11/09/192117 COPY TO: MAGEN BRAMBILA DO~ [place] [address] Patient Name: ERMELINDA LEE MR #: [id number] : 1945 Age/Sex: 74/F Req #: [id number] Adm Physician: Ordered by: MAGEN BRAMBILA DO Report #: [id number] Location: ER Room/Bed: Procedure: [id number] DX/KNEE THREE VIEWS BILATERAL Exam Date: 11/09/19 Exam Time: 2009 REPORT STATUS: Signed Bilateral knees- 3 view(s) each HISTORY: Pain. COMPARISON: None available. FINDINGS: RIGHT: No displaced fracture. The osseous alignment is within normal limits. Moderate tricompartmental joint space narrowing and marginal osteophytosis, worst in the medial compartment. Possible small joint effusion. LEFT: No displaced fracture. The osseous alignment is within normal limits. Moderate tricompartmental joint space narrowing and marginal osteophytosis, worst in the medial compartment. The soft tissues appear unremarkable. IMPRESSION: No acute fracture. 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 Signed by: Von Manzanares MD on 11/09/2019 9:16 PM Dictated By: VON MANZANARES MD 15 Transcribed By: JANEL on 11/09/192115 COPY TO: MAGEN BRAMBILA DO~ [place] [address] Patient Name: ERMELINDA LEE MR #: [id number] : 1945 Age/Sex: 74/F Req #: [id number] Adm Physician: Ordered by: MAGEN BRAMBILA DO Report #: [id number] Location: ER Room/Bed: Procedure: [id number] DX/SHOULDER RIGHT 1 VIEW Exam Date: 11/09/19 Exam Time: 2119 REPORT STATUS: Signed SHOULDER RIGHT 1 VIEW HISTORY: Pain. COMPARISON: None available. IMPRESSION: A single AP portable view of the right shoulder is submitted. The right humeral head projects over the glenoid. No fracture is identified. Signed by: Von Manzanares MD on 11/09/2019 10:03 PM Dictated By: VON MANZANARES MD 02 Transcribed By: JANEL on 11/09/192202 COPY TO: MAGEN BRAMBILA DO~ Diagnostics Tests Diagnostic test(s) reviewed: Yes Procedures Orthopedic Joint Reduction Joint: Joint #1 Time out performed: Yes Side: right Joint reduction location: shoulder Analgesia: procedural sedation Shoulder technique used (if ap: traction/counter-traction Post-reduction neuor exam: intact Post-reduction vascular exam: intact Post-reduction xrays obtained: Yes Xray results: reduced Splint applied: Yes Patient tolerated procedure: well Procedural Sedation Indication: fracture/dislocation reduction ASA class: II Preparation: child monitor applied, pulse oximeter, suction/airway equip at bedside, IV secured Ketamine: IV (25) IV Propofol dose (mg): 25 Complications: none Critical Care Time Subsequent provider I assumed direction of critical care for this patient from another provider of my specialty. Assessment & Plan Assessment & Plan Problems: (1) Shoulder dislocation (2) Head injury (3) Elevated blood pressure reading (4) Knee injury Assessment & Plan Assessment : 1) Head injury 2) R shoulder dislocatoin 3) b/l Knee pain 4) s/p fall . 5) elevated Blood pressure Plan : Pt to f/u with PCP Rx Tylenol #3 , disp 20 Reassessment Reassessment Patient with improvement in R shoulder pain after patient had a successful reduction under procedural sedatoin. Sling applied by Nurse and plan to discharge to home Depart Disposition: HOME, SELF-CARE Last Vital Signs Vital Signs Date Time Temp Pulse Resp B/P (MAP) Pulse Ox O2 Delivery O2 Flow Rate FiO2 11/09/19 21:48 91 16 173/99 100 11/09/19 20:18 98.6 83 19 157/96 100 11/09/19 19:55 98.6 83 19 157/96 100 Home Meds Reported Medications [Eliquis] No Conflict Check, PO DAILY 09/15/18 [place]-3/Dha/Epa/Fish Oil (FISH OIL OMEGA-3 SOFTGEL) 1 Each Capsule.dr, 1 CAP PO DAILY 09/15/18 Aspirin (ASPIR 81) 81 Mg Tablet.dr, 81 MG PO DAILY 09/15/18 Cyanocobalamin (VITAMIN B-12) 1,000 Mcg Tab, 1000 MCG PO DAILY, #30 TAB 09/15/18 Omeprazole (OMEPRAZOLE) 40 Mg Capsule.dr, 40 MG PO DAILY 09/15/18 Zolpidem Tartrate (ZOLPIDEM TARTRATE) 5 Mg Tablet, 5 MG PO HS, #30 TAB 09/15/18 Enalapril Maleate (Enalapril Maleate) 20 Mg Tablet, 20 MG PO DAILY 10/23/11 Metoclopramide Hcl (Reglan) 10 Mg Tablet, 10 MG PO AC 10/23/11 Albuterol Sulfate (Albuterol Sulfate Hfa) 8.5 Gm Hfa.aer.ad, 8.5 GM IH Q4 PRN 10/23/11 Fenofibrate Nanocrystallized (Tricor) 145 Mg Tablet, 145 MG PO DAILY 10/23/11 Montelukast Sodium (Singulair) 10 Mg Tablet, 10 MG PO DAILY 10/23/11 MAGEN BRAMBILA DO November 09, 2019 19:34
--- NOTE | 2019-11-09 22:06 | Diagnostic Imaging Report ---
SHOULDER RIGHT 1 VIEW HISTORY: Pain. COMPARISON: None available. IMPRESSION: A single AP portable view of the right shoulder is submitted. The right humeral head projects over the glenoid. No fracture is identified. Signed by: Brayan Abreu MD on 11/09/2019 10:03 PM
[2019-11-09 22:31] VITALS: BP 157/95
== END | disposition home or self-care (01) ==
LOC: ER 19:23
DX: S43.004A Unspecified dislocation of right shoulder joint, initial encounter (principal); S00.83XA Contusion of other part of head, initial encounter; S20.219A Contusion of unspecified front wall of thorax, initial encounter; M25.562 Pain in left knee; M25.561 Pain in right knee; W10.8XXA Fall (on) (from) other stairs and steps, initial encounter; Y92.008 Other place in unspecified non-institutional (private) residence as the place of occurrence of the external cause; I10 Essential (primary) hypertension; E78.5 Hyperlipidemia, unspecified
CPT/HCPCS: 23650; 36415; 70450; 71046; 73020; 73562; 85025; 99285; J2270; J2405; J2704

== ENCOUNTER → 2019-12-14 | Outpatient (CLI) | payer MEDICARE ==
[~2019-12-14] MED LIST changes: -KETAMINE HCL INJ 50 MG/ML 10 ML VIAL IV ONE; -MORPHINE SULFATE INJ 4 MG/ML INJ 1ML IV STA; -ONDANSETRON HCL INJ 2MG/ML 2ML 2 MG/ML VIAL IV STA; -PROPOFOL IV EMULSION 10 MG/ML 20 ML VIAL IV ONE
--- NOTE | 2019-12-14 12:35 | Diagnostic Imaging Report ---
TECHNIQUE: Magnetic resonance imaging of the RIGHT SHOULDER was performed WITHOUT injected contrast. COMPARISON: None available. HISTORY: Right shoulder pain FINDINGS: MUSCLES AND TENDONS: Rotator Cuff: Tendons: Full thickness tearing of the supraspinatus and infraspinatus with retraction of the deep fibers to the glenohumeral joint. High-grade tearing of the subscapularis. Muscles: Atrophy of the supraspinatus infraspinatus and subscapularis. Biceps Tendon: The long head of the biceps tendon is not visualized and likely torn and retracted. GLENOHUMERAL JOINT: Glenoid Labrum: Labral fraying. Articular Cartilage: Partial-thickness cartilage loss AC JOINT AND ACROMION: Mild hypertrophic degenerative changes of the acromioclavicular joint. Subacromial spurring. BONE: No acute fracture. SOFT TISSUES: Otherwise, the soft tissues appear unremarkable. IMPRESSION: Full thickness tearing of the supraspinatus and infraspinatus with retraction and muscle atrophy. Long head biceps tendon complete tear with distal retraction. Signed by: Dr. Moreno Ayala M.D. on 12/14/2019 12:32 PM
== END ==
LOC: MRI 10:22
PROVIDERS: ATTEND Specialist
DX: M75.101 Unspecified rotator cuff tear or rupture of right shoulder, not specified as traumatic (principal)

== ENCOUNTER → 2019-12-23 | Day surgery (SDC) | payer MEDICARE, OTHER ==
[2019-12-18 11:09] LABS: BASOPHILS % 0.6 % (0.0-1.0); EOSINOPHILS # (AUTO) 0.1 (0.0-0.4); EOSINOPHILS % 1.9 % (0.0-6.0); HEMATOCRIT 39.5 % (34.2-44.1); HEMOGLOBIN 13.1 g/dL (12.0-16.0); LYMPHOCYTES # (AUTO) 1.4 (1.0-3.2); LYMPHOCYTES % 29.6 % (18.0-39.1); MEAN CORPUSCULAR HEMOGLOBIN 31.2 pg (28-32); MEAN CORPUSCULAR HGB CONC 33.2 g/dL (31-35); MONOCYTES # (AUTO) 0.3 (0.2-0.8); MONOCYTES % 6.8 % (4.4-11.3); NEUTROPHILS # (AUTO) 2.9 (2.1-6.9); NEUTROPHILS % 60.9 % (38.7-80.0); PLATELET COUNT 157 x10e3/uL (140-360); RED CELL DISTRIBUTION WIDTH 13.1 % (11.7-14.4)
[2019-12-18 11:26] LABS: ANION GAP 11.4 mmol/L (8-16); CALCIUM 9.5 mg/dL (8.4-10.2); CREATININE, SERUM 1.04 mg/dL (0.57-1.11); POTASSIUM 4.4 mmol/L (3.5-5.1)
--- NOTE | 2019-12-18 13:30 | Diagnostic Imaging Report ---
EXAMINATION: CHEST 2 VIEWS INDICATION: Pre-operative COMPARISON: Chest radiograph 11/09/2019 FINDINGS: LINES/TUBES:None LUNGS:The lungs are well-inflated. No focal consolidation or pulmonary edema. PLEURA:No pleural effusion or pneumothorax. MEDIASTINUM:The cardiomediastinal silhouette appears normal in size and shape. BONES/SOFT TISSUES:No acute osseous injury. ABDOMEN:No free air under the diaphragm. IMPRESSION: No focal pneumonia or pulmonary edema. Signed by: Misbah Lew MD on 12/18/2019 1:27 PM
[~2019-12-23] MED LIST changes: +ALBUTEROL SULFATE HFA 8GM INHALATION AEROSOL INH ONE; +CLINDAMYCIN PHOS 900MG/ 50ML 50 ML IV ONE; +DEXAMETHASONE SOD PHOS INJ 4 MG/ML VIAL ONE; +EPHEDRINE SULFATE INJ 50 MG/ML VIAL ONE; +EPINEPHRINE 1 MG/ML 30ML VIAL ONE; +FENTANYL CITRATE/PF 100MCG/2 ML INJ ONE; +HYDROCHLOROTH12.5 MG PO; +LIDOCAINE 2% /EPINEPHRINE 20 ML SDV INJ ONE; +LIDOCAINE HCL 2% LOCAL INJ 5 ML SDV VIAL INJ ONE; +MIDAZOLAM HCL 2 MG/2 ML VIAL ONE; +ONDANSETRON HCL INJ 2MG/ML 2ML 2 MG/ML VIAL ONE; +PROPOFOL IV EMULSION 10 MG/ML 20 ML VIAL ONE; +ROCURONIUM BROMIDE 10 MG/ML 5ML VIAL IV ONE; +ROPIVACAINE 0.5% 5 MG/ML 30 ML SDV ONE; +SEVOFLURANE INHAL SOLN 250 ML PEN BTL ONE; +SUGAMMADEX SODIUM 200 MG/2 ML VIAL IV ONE
[2019-12-23 15:00] VITALS: BP 137/82
--- NOTE | 2019-12-30 07:42 | Operative Report ---
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 OPERATIONS AND PROCEDURE PERFORMED: The patient underwent a right shoulder examination under anesthesia, right shoulder arthroscopy, right shoulder arthroscopic debridement of synovitis, right shoulder chondroplasty of humeral head and glenoid, right shoulder arthroscopic rotator cuff repair, a right shoulder arthroscopic subacromial decompression, acromioplasty and a right shoulder arthroscopic distal clavicle resection. NURSERY RN: There was no physical therapy assistant. ANESTHESIA: A regional block and general anesthesia. IV FLUIDS: Per the anesthesia record. BRIEF DESCRIPTION OF THE PATIENT'S OPERATIVE PROCEDURE: Ms. Garcia was taken to the operating room and placed in supine position on the operating table. Following induction of general anesthesia, the patient's care was converted to a beach chair-type position. Examination of the right upper extremity demonstrated no gross abnormalities. Passive range of motion and shoulder shrug was full. There was no evidence of instability. The patient's upper extremity was prepped and draped in standard surgical fashion. Standard posterolateral and anterior portals clear without difficulty. The scope was placed within the shoulder joint atraumatically and examination of glenohumeral articulation demonstrated chondromalacia of both surfaces. There was diffuse synovitis of the shoulder joint. There were no loose bodies. The rotator cuff was found to be torn and significantly retracted. There was a very large rotator cuff tear. A shaver was placed in the shoulder joint and synovitis was debrided. Chondroplasties of the glenoid and humeral head were achieved at this time. The insertion site for the rotator cuff was then debrided to a bleeding bony bed. The scope was then transferred to the subacromial space. The rotator cuff was mobilized. The tear was found to extend from the rotator interval to the level of the teres minor. The insertion site was further debrided. Two suture anchors were inserted into the greater tuberosity of the humerus. A separate [id number] repair was performed to reapproximate the rotator interval. The suture arms were then woven through the rotator cuff and the rotator cuff was then advanced and tied firmly across its normal insertion site. This resulted in complete reapproximation of the patient's rotator cuff injury. A bursectomy was then performed. The patient had a significantly downward sloping acromion. An aggressive acromioplasty was performed. The shoulder was placed through range of motion and there was no impingement. The acromioclavicular joint was then isolated. The anterior portal was transferred to the subacromial space and a shaver was used to resect a 1 cm section of the distal clavicle. The scope was then transferred to the anterior portal to confirm complete resection of the distal clavicle. The shoulder was then deflated with sterile normal saline. All port sites were closed. The wounds were dressed sterilely. The patient was then awakened and taken to postanesthesia care in stable condition. MD CEDRIC Peoples/JUAN PABLO /[id number]
== END | disposition home or self-care (01) ==
LOC: OR 08:11
PROVIDERS: ATTEND Specialist
DX: M75.121 Complete rotator cuff tear or rupture of right shoulder, not specified as traumatic (principal); M19.011 Primary osteoarthritis, right shoulder; J45.909 Unspecified asthma, uncomplicated; M65.811 Other synovitis and tenosynovitis, right shoulder; M94.211 Chondromalacia, right shoulder; E66.01 Morbid (severe) obesity due to excess calories; K21.9 Gastro-esophageal reflux disease without esophagitis; I12.9 Hypertensive chronic kidney disease with stage 1 through stage 4 chronic kidney disease, or unspecified chronic kidney disease; N18.4 Chronic kidney disease, stage 4 (severe); Z88.0 Allergy status to penicillin; Z01.810 Encounter for preprocedural cardiovascular examination; Z01.812 Encounter for preprocedural laboratory examination; Z01.818 Encounter for other preprocedural examination; Z11.59 Encounter for screening for other viral diseases; Z79.02 Long term (current) use of antithrombotics/antiplatelets; Z86.711 Personal history of pulmonary embolism
CPT/HCPCS: 29824; 29826; 29827; 36415; 71046; 80048; 85025; 87635; 93005; J1100; J2001 ×2; J2250; J2405; J2704; J2795; J3010

== ENCOUNTER 2020-03-28 08:32 | Outpatient (RCR) | payer MEDICARE ==
[~2020-03-28 08:32] MED LIST changes: -ALBUTEROL SULFATE HFA 8GM INHALATION AEROSOL INH ONE; -CLINDAMYCIN PHOS 900MG/ 50ML 50 ML IV ONE; -DEXAMETHASONE SOD PHOS INJ 4 MG/ML VIAL ONE; -EPHEDRINE SULFATE INJ 50 MG/ML VIAL ONE; -EPINEPHRINE 1 MG/ML 30ML VIAL ONE; -FENTANYL CITRATE/PF 100MCG/2 ML INJ ONE; -LIDOCAINE 2% /EPINEPHRINE 20 ML SDV INJ ONE; -LIDOCAINE HCL 2% LOCAL INJ 5 ML SDV VIAL INJ ONE; -MIDAZOLAM HCL 2 MG/2 ML VIAL ONE; -ONDANSETRON HCL INJ 2MG/ML 2ML 2 MG/ML VIAL ONE; -PROPOFOL IV EMULSION 10 MG/ML 20 ML VIAL ONE; -ROCURONIUM BROMIDE 10 MG/ML 5ML VIAL IV ONE; -ROPIVACAINE 0.5% 5 MG/ML 30 ML SDV ONE; -SEVOFLURANE INHAL SOLN 250 ML PEN BTL ONE; -SUGAMMADEX SODIUM 200 MG/2 ML VIAL IV ONE
== END 2020-03-30 ==
LOC: OT 08:32
PROVIDERS: ATTEND Specialist
DX: S46.001D Unspecified injury of muscle(s) and tendon(s) of the rotator cuff of right shoulder, subsequent encounter (principal); M25.511 Pain in right shoulder; M25.611 Stiffness of right shoulder, not elsewhere classified; R53.1 Weakness; W10.8XXA Fall (on) (from) other stairs and steps, initial encounter; Y93.01 Activity, walking, marching and hiking; Y92.008 Other place in unspecified non-institutional (private) residence as the place of occurrence of the external cause

== ENCOUNTER → 2022-10-31 | Day surgery (SDC) | payer MEDICARE ==
[2022-10-29 13:27] LABS: BASOPHILS # (AUTO) 0.1 (0.0-0.1); EOSINOPHILS # (AUTO) 0.1 (0.0-0.4); EOSINOPHILS % 1.6 % (0.0-6.0); HEMATOCRIT 40.6 % (34.2-44.1); HEMOGLOBIN 13.8 g/dL (12.0-16.0); LYMPHOCYTES # (AUTO) 1.6 (1.0-3.2); LYMPHOCYTES % 33.4 % (18.0-39.1); MEAN CORPUSCULAR HEMOGLOBIN 31.5 pg (28-32); MEAN CORPUSCULAR VOLUME 92.7 fL (81-99); MONOCYTES # (AUTO) 0.3 (0.2-0.8); MONOCYTES % 6.6 % (4.4-11.3); NEUTROPHILS # (AUTO) 2.8 (2.1-6.9); NEUTROPHILS % 57.2 % (38.7-80.0); PLATELET COUNT 149 x10e3/uL (140-360); RED BLOOD COUNT 4.38 x10e6/uL (3.6-5.1); RED CELL DISTRIBUTION WIDTH 12.7 % (11.7-14.4)
[2022-10-29 13:41] LABS: ANION GAP 14.2 mmol/L (8-16); CALCIUM 9.8 mg/dL (8.4-10.2); CREATININE, SERUM 0.95 mg/dL (0.57-1.11); POTASSIUM 4.2 mmol/L (3.5-5.1)
[~2022-10-31] MED LIST changes: +ADVAIR 250-501 EACH INH; +BETAMETHASONE DISODIUM PHOS 6 MG/ML VIAL ONE; +BUPIVACAINE HCL 0.5% INJ 30 ML VIAL INJ ONE; +DEXAMETHASONE SOD PHOS INJ 4 MG/ML SDV ONE; +FENTANYL CITRATE/PF 100MCG/2 ML INJ ONE; +FLAXSEED1000 MG PO; +LACTATED RINGER'S 1,000 ML ONE; +LIDOCAINE HCL 1% LOCAL INJ 20 ML VIAL ONE; +LIDOCAINE HCL 2% LOCAL INJ 5 ML SDV VIAL INJ ONE; +MAGNESIUM COMP300 MG PO; +METOPROLOL TART50 MG PO; +MUPIROCIN 2% OINT 22 GM TUBE ONE; +NEURONTIN100 MG PO; +OMEGA 3 1,0001 EACH PO; +ONDANSETRON HCL INJ 2MG/ML 2ML 2 MG/ML VIAL ONE; +POVIDONE IODINE 0.05% 0.05 % ML PO ONE; +PRAVASTATIN SOD10 MG PO; +PROPOFOL IV EMULSION 10 MG/ML 20 ML VIAL ONE; +SEVOFLURANE INHAL SOLN 250 ML PEN BTL ONE; +SODIUM CHLORIDE 0.9% 250ML 250 ML ONE; +VIT B12 PO; +VIT C PO; +VIT D3 PO; +Vancomycin IV 1 GM VIAL ONE
[2022-10-31 09:10] VITALS: BP 143/86
== END | disposition home or self-care (01) ==
LOC: OR 05:30
PROVIDERS: ATTEND Podiatrist Foot Surgery
DX: M20.11 Hallux valgus (acquired), right foot (principal); M20.41 Other hammer toe(s) (acquired), right foot; I10 Essential (primary) hypertension; J45.909 Unspecified asthma, uncomplicated; K21.9 Gastro-esophageal reflux disease without esophagitis; Z88.0 Allergy status to penicillin; Z01.810 Encounter for preprocedural cardiovascular examination; Z01.812 Encounter for preprocedural laboratory examination; Z01.818 Encounter for other preprocedural examination; Z79.02 Long term (current) use of antithrombotics/antiplatelets; Z79.899 Other long term (current) drug therapy
CPT/HCPCS: 28285 ×2; 28296; 36415; 71046; 73620; 80048; 85002; 85025; 93005; C1713 ×2; J0720; J1100; J2001 ×2; J2405; J2704; J3010; J3370; J7050; J7121

== ENCOUNTER 2023-12-25 16:22 | Inpatient (IN) | payer MEDICARE ==
[~2023-12-25] VITALS: Ht 157.5 cm; Wt 61.2 kg
[~2023-12-25 16:22] MED LIST changes: -BETAMETHASONE DISODIUM PHOS 6 MG/ML VIAL ONE; -BUPIVACAINE HCL 0.5% INJ 30 ML VIAL INJ ONE; -DEXAMETHASONE SOD PHOS INJ 4 MG/ML SDV ONE; -FENTANYL CITRATE/PF 100MCG/2 ML INJ ONE; -LACTATED RINGER'S 1,000 ML ONE; -LIDOCAINE HCL 1% LOCAL INJ 20 ML VIAL ONE; -LIDOCAINE HCL 2% LOCAL INJ 5 ML SDV VIAL INJ ONE; -MUPIROCIN 2% OINT 22 GM TUBE ONE; -ONDANSETRON HCL INJ 2MG/ML 2ML 2 MG/ML VIAL ONE; -POVIDONE IODINE 0.05% 0.05 % ML PO ONE; -PROPOFOL IV EMULSION 10 MG/ML 20 ML VIAL ONE; -SEVOFLURANE INHAL SOLN 250 ML PEN BTL ONE; -SODIUM CHLORIDE 0.9% 250ML 250 ML ONE; -Vancomycin IV 1 GM VIAL ONE
[2023-12-25 16:30] VITALS: TEMP 98.9
[2023-12-25] MEDS ORDERED: SODIUM CHLORIDE FLUSH 10 ML SYR IV PRN (16:45)
[2023-12-25 17:22] LABS: BASOPHILS % 0.6 % (0.0-1.0); EOSINOPHILS # (AUTO) 0.1 (0.0-0.4); EOSINOPHILS % 1.1 % (0.0-6.0); HEMATOCRIT 40.8 % (34.2-44.1); HEMOGLOBIN 13.8 g/dL (12.0-16.0); LYMPHOCYTES # (AUTO) 1.4 (1.0-3.2); LYMPHOCYTES % 21.7 % (18.0-39.1); MEAN CORPUSCULAR HEMOGLOBIN 31.4 pg (28-32); MEAN CORPUSCULAR HGB CONC 33.8 g/dL (31-35); MEAN CORPUSCULAR VOLUME 92.7 fL (81-99); MONOCYTES # (AUTO) 0.4 (0.2-0.8); MONOCYTES % 6.2 % (4.4-11.3); NEUTROPHILS # (AUTO) 4.5 (2.1-6.9); NEUTROPHILS % 70.1 % (38.7-80.0); PLATELET COUNT 194 x10e3/uL (140-360); RED CELL DISTRIBUTION WIDTH 12.5 % (11.7-14.4); WHITE BLOOD COUNT 6.44 x10e3/uL (4.8-10.8)
[2023-12-25 17:44] LABS: BILIRUBIN,URINE SMALL (NEGATIVE); CLARITY,URINE SL CLOUDY (CLEAR); COLOR,URINE YELLOW (YELLOW); GLUCOSE, URINE NEGATIVE (NEGATIVE); KETONES,URINE NEGATIVE (NEGATIVE); LEUKOCYTE ESTERASE ,URINE TRACE (NEGATIVE); NITRITE,URINE NEGATIVE (NEGATIVE); PH,URINE 5.5 (5 - 7); PROTEIN,URINE DIPSTICK 2+ (NEGATIVE); URINE UROBILINOGEN 0.2 mg/dL (0.2 - 1)
[2023-12-25 17:44] LABS: ALANINE AMINOTRANSFERASE 20 IU/L (0-55); ALBUMIN 3.8 g/dL (3.5-5.0); ALBUMIN/GLOBULIN RATIO 1.2 (0.8-2.0); ALKALINE PHOSPHATASE 51 IU/L (40-150); ANION GAP 17.5 mmol/L (8-16); BILIRUBIN,TOTAL 0.4 mg/dL (0.2-1.2); BLOOD UREA NITROGEN 35 mg/dL (7-26); BUN/CREATININE RATIO 23 (6-25); CALCIUM 9.2 mg/dL (8.4-10.2); CARBON DIOXIDE 19 mmol/L (22-29); CHLORIDE 108 mmol/L (98-107); CREATININE, SERUM 1.55 mg/dL (0.57-1.11); EST GLOMERULAR FILTRATION RATE 34 ML/MIN (>=60); GLUCOSE 128 mg/dL (74-118); POTASSIUM 4.5 mmol/L (3.5-5.1); SODIUM 140 mmol/L (136-145); TOTAL PROTEIN 7.1 g/dL (6.5-8.1)
[2023-12-25 17:50] LABS: TROPONIN I < 0.001 ng/mL (0-0.300)
[2023-12-25] MEDS: SODIUM CHLORIDE 0.9% 1000ML 1,000 ML IV ONE (17:54)
[2023-12-25 17:56] LABS: AMORPHOUS SEDIMENT,URINE MODERATE (FEW); BACTERIA,URINE MODERATE /HPF; EPITHELIAL CELLS,URINE FEW /LPF
[2023-12-25] MEDS ORDERED: ONDANSETRON HCL INJ 2MG/ML 2ML 2 MG/ML VIAL IV PRN (19:15)
[2023-12-25] MEDS ORDERED: ASPIRIN 81 MG CHEW TAB PO ONE (19:15)
[2023-12-25] MEDS ORDERED: Morphine 4mg INJECTION 4 MG/ML INJ IV PRN (19:15)
[2023-12-25] MEDS: ASPIRIN 81 MG CHEW TAB PO ONE (19:59)
[2023-12-25 20:00] VITALS: BP 129/80; PULSE 88; RESP 18; TEMP 98.1; O2SAT 98
[2023-12-25 20:42] VITALS: PULSE 89; RESP 18
[2023-12-25 20:54] VITALS: PULSE 85; RESP 16; O2SAT 98
[2023-12-25] MEDS ORDERED: REGLAN10 MG PO (23:14)
[2023-12-25 23:16] VITALS: BP 129/80; PULSE 88; RESP 18; TEMP 98; O2SAT 97
[2023-12-26] VITALS (10 sets, daily range): BP systolic 118–162; BP diastolic 62–90; PULSE 71–114; RESP 16–19; TEMP 98.1–98.8; O2SAT 96–99
[2023-12-26 01:33] LABS: TROPONIN I 0.001 ng/mL (0-0.300)
[2023-12-26 05:44] LABS: BASOPHILS % 0.4 % (0.0-1.0); EOSINOPHILS # (AUTO) 0.1 (0.0-0.4); EOSINOPHILS % 2.1 % (0.0-6.0); HEMOGLOBIN 11.9 g/dL (12.0-16.0); LYMPHOCYTES # (AUTO) 1.7 (1.0-3.2); LYMPHOCYTES % 36.1 % (18.0-39.1); MEAN CORPUSCULAR HEMOGLOBIN 31.3 pg (28-32); MEAN CORPUSCULAR VOLUME 92.1 fL (81-99); MONOCYTES # (AUTO) 0.3 (0.2-0.8); MONOCYTES % 7.1 % (4.4-11.3); NEUTROPHILS # (AUTO) 2.6 (2.1-6.9); NEUTROPHILS % 54.1 % (38.7-80.0); PLATELET COUNT 158 x10e3/uL (140-360); RED CELL DISTRIBUTION WIDTH 12.4 % (11.7-14.4); WHITE BLOOD COUNT 4.82 x10e3/uL (4.8-10.8)
[2023-12-26 06:41] LABS: ANION GAP 12.8 mmol/L (8-16); CALCIUM 8.6 mg/dL (8.4-10.2); CREATININE, SERUM 1.08 mg/dL (0.57-1.11); POTASSIUM 3.8 mmol/L (3.5-5.1)
[2023-12-26] MEDS ORDERED: METOCLOPRAMIDE HCL 10 MG TAB PO PRN (09:00)
[2023-12-26] MEDS: METOPROLOL TARTRATE 50 MG TAB PO SCH (09:00)
[2023-12-26] MEDS: GABAPENTIN 100 MG CAP PO SCH (09:00)
[2023-12-26] MEDS: PANTOPRAZOLE SOD 40 MG TABEC PO SCH (09:00)
[2023-12-26] MEDS ORDERED: ALBUTEROL 90 MCG/ACT INHALER INH PRN (09:00)
[2023-12-26] MEDS: SODIUM CHLORIDE 0.9% 250ML 250 ML ONE (09:41)
[2023-12-26 11:07] LABS: TROPONIN I 0.021 ng/mL (0-0.300)
[2023-12-26] MEDS ORDERED: REGADENOSON 0.4 MG/5 ML SYR IV ONE (14:31)
[2023-12-26] MEDS: APIXABAN 2.5 MG TABLET PO SCH (16:19)
[2023-12-26] MEDS: ACETAMINOPHEN 325 MG TAB PO PRN (16:21)
[2023-12-26] MEDS: SALMETEROL XINAF/FLUTICASONE 250/50 MCG INHALER INH SCH (20:00)
[2023-12-26] MEDS: MONTELUKAST SODIUM 10 MG TAB PO SCH (21:14)
[2023-12-26] MEDS: ZOLPIDEM TARTRATE 10 MG TAB PO PRN (21:25)
[2023-12-27] VITALS: BP 126/68; PULSE 101; RESP 17; TEMP 98.1; O2SAT 100
[2023-12-27 04:00] VITALS: BP 119/74; PULSE 97; RESP 16; TEMP 98.4; O2SAT 97
[2023-12-27 06:52] LABS: BASOPHILS % 0.4 % (0.0-1.0); EOSINOPHILS # (AUTO) 0.1 (0.0-0.4); HEMATOCRIT 34.6 % (34.2-44.1); HEMOGLOBIN 11.7 g/dL (12.0-16.0); LYMPHOCYTES # (AUTO) 1.5 (1.0-3.2); LYMPHOCYTES % 30.6 % (18.0-39.1); MEAN CORPUSCULAR HGB CONC 33.8 g/dL (31-35); MEAN CORPUSCULAR VOLUME 91.5 fL (81-99); MONOCYTES # (AUTO) 0.4 (0.2-0.8); MONOCYTES % 8.3 % (4.4-11.3); NEUTROPHILS # (AUTO) 2.9 (2.1-6.9); NEUTROPHILS % 58.5 % (38.7-80.0); PLATELET COUNT 172 x10e3/uL (140-360); RED BLOOD COUNT 3.78 x10e6/uL (3.6-5.1); RED CELL DISTRIBUTION WIDTH 12.3 % (11.7-14.4); WHITE BLOOD COUNT 4.93 x10e3/uL (4.8-10.8)
[2023-12-27 07:31] LABS: ANION GAP 14.2 mmol/L (8-16); CALCIUM 8.9 mg/dL (8.4-10.2); CREATININE, SERUM 0.86 mg/dL (0.57-1.11); POTASSIUM 4.2 mmol/L (3.5-5.1)
[2023-12-27 07:52] VITALS: BP 145/95; PULSE 93; RESP 18; TEMP 98.2; O2SAT 99
[2023-12-27 08:10] LABS: MAGNESIUM 1.2 MG/DL (1.3-2.1); PHOSPHORUS 3.4 MG/DL (2.3-4.7)
[2023-12-27] MEDS ORDERED: MAGNESIUM SULFATE 2GM/50ML IV ONE (08:30)
[2023-12-27 08:39] LABS: THYROID STIMULATING HORMONE 0.285 uIU/mL (0.350-4.940)
[2023-12-27 09:00] VITALS: BP 145/95; PULSE 93; RESP 18; TEMP 98.2; O2SAT 99
[2023-12-27] MEDS: MAGNESIUM SULFATE 2GM/50ML 50 ML IV ONE (09:07)
[2023-12-27 09:19] VITALS: PULSE 107; RESP 18; O2SAT 97
[2023-12-27] MEDS ORDERED: ONDANSETRON HCL 4 MG ORAL DISINTEGRATING TAB PO PRN (11:00)
[2023-12-27 11:25] VITALS: BP 138/74; PULSE 77; RESP 18; TEMP 98.4; O2SAT 99
== END 2023-12-27 12:08 | disposition home or self-care (01) | DRG 69 ==
LOC: ER 16:30 → ERHOLD 19:06 → MED/SURG 20:51 → OBSVTOIN 12-26 09:10
PROVIDERS: ADMIT Internal Medicine; ATTEND Internal Medicine
DX: G45.9 Transient cerebral ischemic attack, unspecified (principal); N39.0 Urinary tract infection, site not specified; I10 Essential (primary) hypertension; K21.9 Gastro-esophageal reflux disease without esophagitis; F01.50 Vascular dementia, unspecified severity, without behavioral disturbance, psychotic disturbance, mood disturbance, and anxiety; R41.3 Other amnesia; J45.909 Unspecified asthma, uncomplicated; K80.20 Calculus of gallbladder without cholecystitis without obstruction; R07.89 Other chest pain; G47.00 Insomnia, unspecified; G62.9 Polyneuropathy, unspecified; R53.81 Other malaise; E78.00 Pure hypercholesterolemia, unspecified; Z86.718 Personal history of other venous thrombosis and embolism; I69.828 Other speech and language deficits following other cerebrovascular disease; I69.820 Aphasia following other cerebrovascular disease; Z87.891 Personal history of nicotine dependence; Z11.52 Encounter for screening for COVID-19; Z86.711 Personal history of pulmonary embolism; Z88.0 Allergy status to penicillin; Z79.01 Long term (current) use of anticoagulants; Z79.51 Long term (current) use of inhaled steroids; Z82.49 Family history of ischemic heart disease and other diseases of the circulatory system; Z83.3 Family history of diabetes mellitus
CPT/HCPCS: 36415; 70450; 70551; 71045; 78452; 80048; 80053; 81001; 82550; 83735; 83880; 84100; 84443; 84484; 85025; 87086; 93005; 93017; 93306; 93880; 94664; 94760; 94799; 99284; A9502; G0378; J0696; J3475; J7030; J7050; U0002